=== PATIENT | male | born 1995 | race Caucasian/White ===

== ENCOUNTER 2017-09-11 21:02 | Emergency (ER) | payer BC ==
--- NOTE | 2017-09-11 21:59 | ERPHSYRPT ---
- History of Present Illness Time Seen by Provider: 09/11/17 21:50 Source: patient Exam Limitations: no limitations Patient Subjective Stated Complaint: pt states he punched a wall and some other stuff with lhis rt hand and is having pain and swelling at this time Triage Nursing Assessment: pt alert and oriented, asnwers questions approp. pt ambulatory with steady gati noted, respirations nonlabored with lungs cta. skin pink warm and dry. abrasion noted to knuckles on rt ahdn, swelling and tenderness notd to rt hand. Physician History: The patient is a 22-year-old right-handed male who was angry prior to arrival, and punching a door several times with his right hand, causing abrasions to his middle finger knuckle and pain to his right hand and knuckles. He did not take any pain medicines. Occurred: just prior to arrival Method of Injury: direct blow Quality: constant, sharpness Severity of Pain-Max: moderate Severity of Pain-Current: moderate Extremities Pain Location: hand: right Modifying Factors: Improves With: nothing Associated Symptoms: none Allergies/Adverse Reactions: No Known Drug Allergies Allergy (Unverified 04/18/13 07:31) Hx Tetanus, Diphtheria Vaccination/Date Given: Yes Hx Influenza Vaccination/Date Given: No Hx Pneumococcal Vaccination/Date Given: No Immunizations Up to Date: Yes - Review of Systems Constitutional: No Fever, No Chills Eyes: No Symptoms Ears, Nose, & Throat: No Symptoms Respiratory: No Cough, No Dyspnea Cardiac: No Chest Pain, No Edema, No Syncope Abdominal/Gastrointestinal: No Abdominal Pain, No Nausea, No Vomiting, No Diarrhea Genitourinary Symptoms: No Dysuria Musculoskeletal: Injury, Joint Pain Skin: Other (abrasion) Neurological: No Dizziness, No Focal Weakness, No Sensory Changes Psychological: No Symptoms Endocrine: No Symptoms Hematologic/Lymphatic: No Symptoms Immunological/Allergic: No Symptoms All Other Systems: Reviewed and Negative - Past Medical History Pertinent Past Medical History: Yes Neurological History: No Pertinent History ENT History: No Pertinent History Cardiac History: No Pertinent History Respiratory History: No Pertinent History Endocrine Medical History: No Pertinent History Musculoskeletal History: No Pertinent History GI Medical History: No Pertinent History History: No Pertinent History Psycho-Social History: No Pertinent History Male Reproductive Disorders: No Pertinent History - Past Surgical History Past Surgical History: No Neuro Surgical History: No Pertinent History Cardiac: No Pertinent History Respiratory: No Pertinent History Gastrointestinal: No Pertinent History Genitourinary: No Pertinent History Musculoskeletal: No Pertinent History Male Surgical History: No Pertinent History - Social History Smoking Status: Current some day smoker How long have you smoked: 4 YEARS Exposure to second hand smoke: Yes Drug Use: marijuana Patient Lives Alone: No - Nursing Vital Signs Nursing Vital Signs: Initial Vital Signs Temperature 97.9 F 09/11/17 21:20 Pulse Rate 105 H 09/11/17 21:20 Respiratory Rate 18 09/11/17 21:20 Blood Pressure 126/81 09/11/17 21:20 O2 Sat by Pulse Oximetry 100 09/11/17 21:20 Pain Scale Pain Intensity 8 - Physical Exam General Appearance: alert Eyes, Ears, Nose, Throat Exam: moist mucous membranes Neck Exam: non-tender, supple Cardiovascular/Respiratory Exam: chest non-tender, normal breath sounds, regular rate/rhythm, no respiratory distress Abdominal Exam: non-tender, No guarding Back Exam: normal inspection, No vertebral tenderness Shoulder Exam: normal inspection Elbow/Forearm Exam: normal inspection Wrist Exam: normal inspection Hand Exam: laceration (abrasion to right 3rd MCP joint), soft tissue tenderness Neuro/Tendon Exam: normal sensation, normal motor functions Mental Status Exam: alert, oriented x 3, cooperative Skin Exam: abrasion SpO2 Interpretation: normal SpO2: 100 Oxygen Delivery: Room Air - Radiology Exams Right Hand X-ray Interpretation: Interpreted by me, Negative, No Fracture Ordered Tests: Active Orders 24 hr Category Date Time Status HAND (MINIMUM 3 VIEWS) Stat Exams 09/11/17 22:04 Ordered Medication Summary Discontinued Medications Generic Name Dose Route Start Last Admin Trade Name Tab PRN Reason Stop Dose Admin Ketorolac Tromethamine 60 mg 09/11/17 22:04 09/11/17 22:09 Toradol 30 Mg Injection IM 09/11/17 22:05 60 mg STAT ONE Administration Ketorolac Tromethamine Confirm 09/11/17 22:06 Toradol 30 Mg Injection Administered 09/11/17 22:07 Dose 60 mg .ROUTE .STK-MED ONE - Progress Progress: improved Counseled pt/family regarding: diagnosis, rad results - Departure Time of Disposition: 22:57 Departure Disposition: Home Clinical Impression: Contusion of right hand Condition: Stable Critical Care Time: No Referrals: ELYSIA HUDDLESTON [Primary Care Provider] - Instructions: Finger Fracture Additional Instructions: You have a contusion to your right hand after striking a door several times with your right hand. The x-ray was negative for fracture. You were given Toradol 60 mg by IM in the ER. Take tylenol 1000 mg every 6 hours as needed for pain. Apply ice to the area as needed. Follow-up as needed.
[2017-09-11] MEDS ORDERED: TORAdol 30 mg Injection IM ONE (22:04)
[2017-09-11] MEDS ORDERED: TORAdol 30 mg Injection ONE (22:06)
[2017-09-11 23:21] VITALS: BP 109/81; PULSE 105; O2SAT 98
--- NOTE | 2017-09-12 08:48 | XRAY ---
Indication: Pain following punching injury. Comparison: None 3 views of the right hand obtained. No bony, articular, or soft tissue abnormalities.
== END 2017-09-11 23:22 | disposition home or self-care (01) ==
LOC: ED 21:02
DX: S60.221A Contusion of right hand, initial encounter (principal); W22.09XA Striking against other stationary object, initial encounter
CPT/HCPCS: 73130; 96372; 99284; J1885